=== PATIENT | female | born 1975 | race African-American/Black ===

== ENCOUNTER 2022-09-02 07:57 | Outpatient (REF) | payer BC, SELFPAY | END 2022-09-02 07:58 | disposition home or self-care (01) | LOC: HO.SH 07:57 | PROVIDERS: Visit Provider Physician Assistant | DX: Z01.118 Encounter for examination of ears and hearing with other abnormal findings (principal); H90.11 Conductive hearing loss, unilateral, right ear, with unrestricted hearing on the contralateral side; H69.91 Unspecified Eustachian tube disorder, right ear | CPT/HCPCS: 92557; 92567; 92588 ==

== ENCOUNTER 2024-06-26 10:51 | Emergency (ER) | payer BC, SELFPAY ==
--- NOTE | ~2024-06-26 | XR_ITS ---
EXAMINATION: XR CHEST 1 VIEW HISTORY: Lightheadedness COMPARISON: There are no prior studies for comparison. FINDINGS: A single PA view of the chest is submitted. The lungs are expanded and clear. There is no pleural effusion, pneumothorax, or pulmonary vascular congestion. The heart is normal in size. The bones are intact. XR/XR chest 1V IMPRESSION: Clear lungs. Electronically signed by: Alberto Owens MD 06/26/2024 12:09 PM DICK LORENZ
[2024-06-26 11:24] VITALS: BP 136/88; PULSE 76; RESP 20; TEMP 36.9; O2SAT 99; BMI 39.8
--- NOTE | 2024-06-26 11:25 | ED_ITS ---
HPI - Dizziness General Chief Complaint: Dizziness Stated Complaint: Dizzy Headache Nausea Time Seen by Provider: 06/26/24 21:03 History of Present Illness ED Provider: Naveen POSEY Narrative: The patient comes to the emergency room having felt mildly dizzy for 2 days but then more dizzy today. She describes it dizziness as a bit like lightheadedness. She also has a headache today. She feels she has had some blurry vision with her headache today. The patient says the feelings of dizziness or lightheadedness have been coming and going. She has had no syncope. No fever, sweats, chills. Related Data Previous Rx's ?Medication ?Instructions ?Recorded meclizine 25 mg tablet 25 mg PO TID PRN dizziness #14 tabs 06/26/24 Allergies Allergy/AdvReac Type Severity Reaction Status Date / Time No Known Allergies Allergy Verified 06/26/24 11:27 [No Known Allergies*] Review of Systems 2 Review of Systems: Yes all other systems are reviewed and are negative [facility] Social History Social History Advance Directives: No Advance Directives Information Provided: Yes Do you have a plan to hurt others: No Plan Physical Exam 2 Vital Signs: Vital Signs: Last Vital Signs Temp 97.4 F 06/26/24 23:20 Pulse 75 06/26/24 23:20 Resp 18 06/26/24 23:20 BP 123/64 06/26/24 23:20 Pulse Ox 100 06/26/24 23:20 O2 Del Method Room Air 06/26/24 23:20 BMI result Body Mass Index 39.8 Const: Other: The patient is awake and alert, pleasant cooperative. She looks well. She does not seem toxic. HEENT: Other: The face is symmetrical. Mucous membranes are moist. Posterior pharynx is normal. Eyes: Other: Pupils are round equal, conjunctivae are clear, extraocular movements intact, no nystagmus. Neck: Other: The neck is supple Resp: Effort & Inspection: normal respiratory effort Auscultation: clear to auscultation bilaterally Cardio: Rate: regular rate Rhythm: regular rhythm Heart sounds: S1 normal heart sound present and S2 normal heart sound present GI: Other: abdomen is soft nontender Skin: Other: skin is dry and unremarkable Neuro: Other: the patient is awake and alert with normal mental status. She has a cheerful demeanor and does not look ill or toxic in anyway. She seems to be moving around easily. mental status is entirely normal. Eye movements are normal without nystagmus. Pupils are normal. Face is symmetrical. Speech is normal. Strength is normal in her extremities. There is no pronator drift. Finger-nose is normal. Gait is normal. Extrem: Other: No peripheral edema Course Course Course Narrative: This is a Rapid Medical Exam performed in triage by Jessica Galvez PA-C. Full HPI, ROS and PE to be performed by primary ED provider. 49yo F w/PMHx Salpingectomy last week at [facility] presenting to the ED c/o intermittent lightheadedness since 09:30AM. Admits to some blurry vision. denies CP/SOB, abd pain. PE: ambulating w/steady gait, no focal deficits Plan: EKG, labs, UA, CXR, orthostatics Medications Administered Discontinued Medications Generic Name Dose Route Start Last Admin Trade Name Freq PRN Reason Stop Dose Admin Ketorolac Tromethamine 30 mg 06/26/24 21:36 06/26/24 22:16 Ketorolac Tromethamine 30 Mg/Ml Vial IM 06/26/24 21:37 30 mg ONCE ONE Administration Prochlorperazine Edisylate 10 mg 06/26/24 21:37 06/26/24 22:16 Prochlorperazine Edisylate 10 Mg/2 Ml Vial IM 06/26/24 21:38 10 mg ONCE ONE Administration Medical Decision Making Medical Decision Making [facility] Narrative: the patient is a very pleasant 49-year-old who presented complaining of feeling intermittently dizzy or lightheaded. She also complains of a headache with blurry vision. She had a long wait in the emergency room. She had been in the emergency room for 10 hours prior to my evaluation. I thought she looked quite well. I did not find any neurological abnormalities on her exam or any other abnormality on her exam. Her vital signs are unremarkable. Testing ordered at triage includes an unremarkable EKG, a normal chest x-ray, unremarkable blood testing, urine testing, and viral swab. Patient was given an IM injection of ketorolac and prochlorperazine for her headache. She seemed to feel better. She continued to look well. I thought she was safe for discharge. Lab Data 06/26/24 11:43 06/26/24 11:43 Labs: Lab Results 06/26/24 06/26/24 Range/Units 11:43 20:50 WBC 8.3 (4.8-10.8) X10*3/uL RBC 4.17 L (4.20-5.50) X10*6/uL Hgb 13.1 (12.0-16.0) g/dl Hct 39.1 (37.0-47.0) % MCV 93.8 (80.0-98.0) fL MCH 31.4 (27.0-33.0) pg MCHC 33.5 (31.0-35.0) g/dl RDW 12.3 (11.0-16.0) % Plt Count 311 (160-400) X10*3/uL MPV 9.6 (9.4-12.3) fL Immature Gran % (Auto) 0.2 (0.0-0.4) % Neut % (Auto) 50.3 (45-73) % Lymph % (Auto) 40.2 H (20-40) % [place] % (Auto) 7.8 (2-11) % Eos % (Auto) 1.0 (0-4) % Baso % (Auto) 0.5 (0-2) % Lymph # (Auto) 3.3 (1.2-4.9) X10*3/uL [place] # (Auto) 0.6 (0.1-1.2) X10*3/uL Eos # (Auto) 0.1 (0.0-0.4) X10*3/uL Baso # (Auto) 0.0 (0.0-0.2) X10*3/uL Abs Immat Gran (auto) 0.02 (0.00-0.03) X10*3/uL Absolute Neuts (auto) 4.2 (2.0-8.3) x10*3/uL Absolute Nucleated RBC 0.000 (0.0-0.012) X10*3/uL Nucleated RBC % (auto) 0.0 (0.0-0.2) /100WBC PT 11.9 (10.9-12.4) SEC INR 1.0 (0.9-1.1) Sodium 136 (135-145) mmol/L Potassium 3.9 (3.3-5.1) mmol/L Chloride 105 (96-108) mmol/L Carbon Dioxide 24 (22-29) mmol/L Anion Gap 11 L (12-20) BUN 17 H (9-16) mg/dL Creatinine 0.81 (0.5-1.4) mg/dL Estim Creat Clear Calc 100.4 Estimated GFR > 60 Random Glucose 85 (60-115) mg/dL Calcium 9.5 (8.4-10.2) mg/dL Magnesium 1.9 (1.6-2.6) mg/dL Total Bilirubin 0.8 (0.0-1.0) mg/dL Direct Bilirubin 0.1 (0.0-0.5) mg/dL AST 31 (5-31) U/L ALT 26 (0-31) U/L Alkaline Phosphatase 49 (39-117) U/L Troponin I High Sens < 2.7 (<3.5-17.0) ng/L Total Protein 8.4 H (6.5-8.0) g/dL Albumin 4.4 (3.5-5.0) g/dL Lipase 16 (8-78) U/L Urine Color Yellow Urine Appearance Clear Urine pH 6.5 (5.0-9.0) Ur Specific [place] >= 1.030 H (1.005-1.025) Urine Protein Trace (Neg-Trace) mg/dL Urine Glucose (UA) Negative (Negative) mg/dL Urine Ketones Trace (Negative) mg/dL Urine Blood Negative (Negative) Urine Nitrite Negative (Negative) Ur Leukocyte Esterase Negative (Negative) Influenza Type A (PCR) NEGATIVE (Negative) Influenza Type B (PCR) NEGATIVE (Negative) RSV RNA Qual (PCR) NEGATIVE (Negative) SARS-CoV-2 RNA (RT-PCR) NEGATIVE (Negative) Discharge Plan Discharge Clinical Impression: Headache, Dizziness Patient Disposition: Home, Self-Care Additional Instructions: Please rest and take it easy and see if this medication helps. I have sent a prescription for a medication called meclizine which may help if you have any ongoing dizziness. Please contact your regular doctor in the morning for prompt follow up appointment to discuss these symptoms further. Return to the emergency room if you feel significantly worse. Prescriptions: New meclizine 25 mg tablet 25 mg PO TID PRN (Reason: dizziness) Qty: 14 0RF Referrals: Brittany Tabares MD [Primary Care Provider] - Interventions: ED Discharge Assessment Last Done: 06/26/24 23:20 Discharge Date/Time: 06/26/24 23:22 Print Language: Rwandan
--- NOTE | 2024-06-26 11:29 | ECG_ITS ---
Test Reason : dizzy Blood Pressure : */* mmHG Vent. Rate : 71 BPM Atrial Rate : 71 BPM P-R Int : 148 ms QRS Dur : 90 ms QT Int : 404 ms P-R-T Axes : 7 -15 -11 degrees QTcB Int : 439 ms Normal sinus rhythm Minimal voltage criteria for LVH, may be normal variant ( R in aVL ) Borderline ECG When compared with ECG of 30-Mar-2017 00:06, No significant change was found Referred By: Jessica Galvez Electronically Signed By: YENNI AJ MD
[2024-06-26 11:50] LABS: MANUAL DIFF FLAG NO
[2024-06-26 12:01] LABS: Basophils Percent Auto 0.5 % (0-2); Eosinophils Absolute Auto 0.1 X10*3/uL (0.0-0.4); Hematocrit 39.1 % (37.0-47.0); Hemoglobin 13.1 g/dl (12.0-16.0); Imm Gran Abs Auto 0.02 X10*3/uL (0.00-0.03); Imm Gran Pct Auto 0.2 % (0.0-0.4); Lymphocytes Absolute Auto 3.3 X10*3/uL (1.2-4.9); Lymphocytes Percent Auto 40.2 % (20-40); Mean Corpuscular HGB Conc 33.5 g/dl (31.0-35.0); Mean Corpuscular Hemoglobin 31.4 pg (27.0-33.0); Mean Corpuscular Volume 93.8 fL (80.0-98.0); Mean Platelet Volume 9.6 fL (9.4-12.3); Monocytes Absolute Auto 0.6 X10*3/uL (0.1-1.2); Monocytes Percent Auto 7.8 % (2-11); Neutrophils Absolute Auto 4.2 x10*3/uL (2.0-8.3); Neutrophils Percent Auto 50.3 % (45-73); Platelet Count 311 X10*3/uL (160-400); Prothrombin Time 11.9 SEC (10.9-12.4); Red Blood Count 4.17 X10*6/uL (4.20-5.50); Red Cell Distribution Width 12.3 % (11.0-16.0); White Blood Count 8.3 X10*3/uL (4.8-10.8)
[2024-06-26 12:06] LABS: Alanine Aminotransferase 26 U/L (0-31); Albumin Level 4.4 g/dL (3.5-5.0); Alkaline Phosphatase 49 U/L (39-117); Anion Gap 11 (12-20); Aspartate Amino Transferase 31 U/L (5-31); Bilirubin Direct 0.1 mg/dL (0.0-0.5); Bilirubin Total 0.8 mg/dL (0.0-1.0); Blood Urea Nitrogen 17 mg/dL (9-16); Calcium 9.5 mg/dL (8.4-10.2); Carbon Dioxide 24 mmol/L (22-29); Chloride 105 mmol/L (96-108); Creatinine Clr Calc Pharmacy 100.4; Estimated Glomerular Filt Rate > 60; Glucose Random 85 mg/dL (60-115); Lipase 16 U/L (8-78); Magnesium 1.9 mg/dL (1.6-2.6); Potassium 3.9 mmol/L (3.3-5.1); Sodium 136 mmol/L (135-145); Total Protein 8.4 g/dL (6.5-8.0)
[2024-06-26 12:16] LABS: Troponin-I High Sensitivity < 2.7 ng/L (<3.5-17.0)
[2024-06-26 12:37] LABS: Influenza A PCR NEGATIVE (Negative); Influenza B PCR NEGATIVE (Negative); Resp Syncy Virus RNA Qual PCR NEGATIVE (Negative); SARS COV2 PCR INHOUSE NEGATIVE (Negative)
--- OUTSIDE RECORDS SUMMARY | 2024-06-26 13:37 | XMS_ITS | Continuity of Care Document ---
Author Organization [facility] Address [address] [place] [phone] Phone Care Team Providers Care Customer Success Advocate Name Role Phone Provider, [facility] Unavailable Unavailable Advance Directives Directive Yes / No Effective Date File Name No Information Encounters Encounter Description Practice Location Reason(s) For Visit Diagnoses Date Provider Providers Copied on Encounter [facility], [address] [place] [address], [id number], tel:[phone] No Information Provider [facility]. . [facility], [address] [place] [address], [id number], [place] tel:[phone] [facility] Location OBESITY (MORBID)HYPOTH YROIDISMDEPRES SIONSCREENING FOR DIABETES MELLITUJOINT PAIN - PAIN IN JOINT INV Provider [employer]. . Family History Family Member Type Diagnosis Age At Onset No Information Payers Payer name Insurance type Covered alliance party ID Authoriza tion(s) No Information Social History Type Description Quantity Date Captured Comments Sex Female Smoking Status No Information Chief Complaint And Reason For Visit No Information History Of Present Illness Encounter Date Complaint History Of Prese nt Illness No Information Instructions Date Instruction Additional Infor mation No Information Assessments Type Assessment Date No Information
--- OUTSIDE RECORDS SUMMARY | 2024-06-26 13:37 | XMS_ITS | Clinical Summary ---
Author Organization [address] Address [address] [place] [phone] Phone Care Team Providers Care Freight Car Loader Name Role Phone Brittany Tabares MD Primary Care Provider [phone] Allergies No known active allergies Medications cyclobenzaprine (FLEXERIL) 10 mg tablet Take 1 tablet (10 mg total) by mouth 3 (three) times a day if needed (spasms/pain). 3 Active levonorgestreL (MIRENA) 21 mcg/24hr (up to 8 yrs) 52 mg IUD 1 Device (1 each total) by intrauterine route 1 (one) time. 4 12/27/19 29 Active naproxen (NAPROSYN) 500 mg tablet Take 1 tablet (500 mg total) by mouth 2 (two) times a day with meals. as needed 3 Active Active Problems Problem Noted Date Diagnosed Date Arthritis of carpometacarpal (CMC) joint of left thumb 02/13/2023 Left carpal tunnel syndrome 02/13/2023 Vitamin B12 deficiency 03/22/2021 Vitamin D deficiency 03/22/2021 Obesity (BMI 30-39.9) 04/01/2017 Condyloma acuminatum 06/06/2016 Overview (04/15/2024): Condyloma acuminatum 05/31 perineum Degeneration, intervertebral disc, lumbosacral 1 05/29/2009 Radiculitis, lumbosacral 03/29/2010 Lumbago 10/15/2007 Overview (04/15/2024): Lumbar x-ray completed 02/2010: Multilevel chronic discogenic disease, most severe at the L4-5 level. Immunizations Name Administration Dates Next Due Influenza Quadravalent, MDCK , 0.5ml, preservative free (Flucelvax) 6mo and older 01/24/2022,03/19/2021 Influenza trivalent, 0.5mL, preservative free (Fluarix; FluLaval; Fluzone) ages 6mo and older (Afluria) 3 years and older 02/23/2010 Td Tetanus diptheria (Tdvax) 7yo and older 03/19 Surgical History Surgery Date Site/Laterality Comments OTHER SURGICAL HISTORY 04/15/14 PROCEDURE: HISTORY OTHER; COMMENT: lap sleeve gastrectomy (bariatric surgery) - dr. Elam, [facility] CHOLECYSTECTOMY 2018 PROCEDURE: LAPAROSCOPY, CHOLECYSTECTOMY Medical History Medical History Date Comments Generalized osteoarthrosis, unspecified site DX:Generalized osteoarthrosi s, unspecified site; COMMENT: knee Back pain DX:Back pain IUD (intrauterine device) in place 2013 DX:IUD (intrauterine device) in place; COMMENT: Mirena Family History Medical History Relation Name Comments Hypertension Father Hypertension Mother Diabetes Mother's side aunt Breast cancer Other mat cousin 40 Hypertension Sister Colon cancer Neg Hx Ovarian cancer Neg Hx Uterine cancer Neg Hx Relation Name Status Comments Father Mother Mother's side Other mat cousin 40 Alive Sister Social History Tobacco Use Types Packs/Day Years Used Date Smoking Tobacco: Former Cigarettes 0.3 10.8 0 05/15/1987 - 03/13/1998 Smokeless Tobacco: Never Alcohol Use Standard Drinks/Week Comments Yes 0 (1 standard drink = 0.6 oz pur e alcohol) Comments Unknown Sex and Gender Information Value Date Recorded Sex Assigned at Not on file Legal Sex Female 4:57 AM EST Gender Identity Not on file Sexual Orientation Not on file Obstetrics History Last Filed Vital Signs Vital Sign Reading Time Taken Comments Blood Pressure 117/61 01/22/2024 9:26 AM EDT Pulse 78 01/22/2024 9:26 AM EDT Temperature - - Respiratory Rate - - Oxygen Saturation - - Inhaled Oxygen Concentration - - Weight 105 kg (232 lb) 01/22/2024 9:26 AM EDT Height 162.6 cm (5' 4 ) 08/28/2023 8:00 AM EDT Body Mass Index 39.82 08/28/2023 8:00 AM EDT Plan of Treatment Upcoming Encounters Date Type Department Care Team (Late st Contact Info) Description 08/23/2024 9:00 AM EDT Office Visit Adult Medicine [address] [phone] Brittany Tabares MD [address] [place], [place] 03/19/2025 7:30 AM EST Appointment Radiology Department - [address] [phone] Health Maintenance Due Date Last Done Comments Hepatitis B Vaccines (1 of 3 - 19+ 3-dose series) 1995 Cervical Cancer Screening: Pap Smear 05/29/2020 05/29/2017, 05/29/2017 Colorectal Cancer Screening: Colonoscopy 04/24/2022 Depression Screening 04/24/2022 HIV Screening 04/24/2022 Hepatitis C Screening 04/24/2022 Social Influencers of Health Screening 04/24/2022 COVID-19 Vaccine ( season) 2024 08/16/2020, 07/19/2020 Influenza Vaccine (#1) 2024 2, 03/19/2021, 02/23/2010 Breast Cancer Screening 02/26/2026 02/27/20 24, 02/27/2024, 02/21/2023, Additional history exists Cholesterol Screening (Lipid Panel) 03/20/2026 03/20/2021 DTaP,Tdap,and Td Vaccines (3 - Td or Tdap) 03/19/2031 03/19/2021, 03/12/2008 HIB Vaccines Aged Out No longer eligi ble based on patient's age to complete this topic HPV Vaccines Aged Out No longer eligi ble based on patient's age to complete this topic Hepatitis A Vaccines Aged Out No long er eligible based on patient's age to complete this topic IPV Vaccines Aged Out No longer eligi ble based on patient's age to complete this topic MMR Vaccines Aged Out No longer eligi ble based on patient's age to complete this topic Meningococcal ACWY Vaccine Aged Out N o longer eligible based on patient's age to complete this topic Meningococcal B Vacine Aged Out No lo nger eligible based on patient's age to complete this topic Pneumococcal Vaccine: Pediatrics (0 to 5 Years) and At-Risk Patients (6 to 64 Years) Aged Out No longer eligible based on patient's age to complete this topic RSV Immunization Patients Under 20 months Aged Out No longer eligible based on patient's age to complete this topic Varicella Vaccines Aged Out No longer eligible based on patient's age to complete this topic Procedures Procedure Name Priority Date/Time Associated Diagnosis Comments SCREENING MAMMOGRAPHY BI 2-VIEW BREAST INC CAD Routine 02/27/2024 7:47 AM EDT Encounter for screening mammogram for malignant neoplasm of breast LIPID PANEL Routine 03/20/2021 HM HPV Routine 05/29/2017 from Last 3 Months or Most Recently Relevant to Health Maintenance Results * SCREENING MAMMOGRAPHY BI 2-VIEW BREAST INC CAD (02/27/2024 7:47 AM EDT) Anatomical Region Laterality Modality Radiographic Angelina ging 02/21/2023 8:00 AM EDT Narrative 02/27/2024 3:29 PM EDT This is a summary report. The complete report is available in the patient's medical record. If you cannot access the medical record, please contact the sending organization for a detailed fax or copy. Exam: Screening mammogram Findings: Digital bilateral full-field screening mammography is performed with tomosynthesis and interpreted with the aid of computer-aided detection. ??Comparison is made with 02/21/2023 and as far back as 02/11/2021. Breast parenchyma is heterogeneously dense, which may obscure small masses. ??No new suspicious mass, architectural distortion, or suspicious calcifications. Impression: No mammographic evidence of malignancy. BI-RADS 1 - negative [facility] [address] [id number] Procedure Note Janna Linder MD - 03/12/2024 This is a summary report. The complete report is available in thepatient's medical record. If you cannot access the medical record, pleasecontact the sending organization for a detailed fax or copy. Exam: Screening mammogram Findings: Digital bilateral full-field screening mammography is performedwith tomosynthesis and interpreted with the aid of computer-aideddetection. Comparison is made with 02/21/2023 and as far back as02/11/2021. Breast parenchyma is heterogeneously dense, which may obscure smallmasses. No new suspicious mass, architectural distortion, or suspiciouscalcifications. Impression: No mammographic evidence of malignancy. BI-RADS 1 - negative [address] [id number] Brittany Tabares MD IMG XR PROCEDURES Final Result * (ABNORMAL) Lipid panel (03/20/2021) LDL/HDL Ratio 3 0 - 4 Triglycerides 124 0 - 150 mg/dL Cholesterol 180 0 - 200 mg/dL HDL 55 >=40 mg/dL LDL Cholesterol 101(A) 0 - 100 mg/dL Blood Venous blood specimen / Unknown Historical Provider LAB BLOOD ORDERABLES Linda l Result * Cervical Cancer Screening: HPV (05/29/2017) Pathologist [facility] Cervical Cancer Screening: HPV Negative, abstracted Historical Provider HEALTH MAINTENANCE Final Result from Last 3 Months or Most Recently Relevant to Health Maintenance Care Teams Freight Car Loader Relationship Specialty Start Date End Date Brittany Tabares MD [address] [place] [phone] PCP - General Internal Medicine 10/08/20
[2024-06-26 20:34] VITALS: BP 123/64; PULSE 75; RESP 18; TEMP 36.3; O2SAT 100
[2024-06-26 20:39] VITALS: BP 123/59; PULSE 77
[2024-06-26 20:40] VITALS: BP 144/79; BP 146/85; PULSE 77; PULSE 78
--- NOTE | 2024-06-26 20:42 | MHC.EDTECH ---
rechecked patients vitals. completed orthostatic vital signs, gave patient a urine cup. waiting for a sample. patient stating that she is dizzy.
[2024-06-26 20:57] LABS: Appearance Urine Clear; Color Urine Yellow; Glucose Urine UA Negative (Negative); Leukocyte Esterase Urine Negative (Negative); Nitrite Urine Negative (Negative); PH 6.5 (5.0-9.0); Specific Gravity - Urine >= 1.030 (1.005-1.025); Urine Blood Negative (Negative); Urine Ketones Trace mg/dL (Negative); Urine Protein Trace mg/dL (Neg-Trace)
[2024-06-26] MEDS: Prochlorperazine Edisylate 10 MG/2 ML VIAL IM (22:16)
[2024-06-26] MEDS: Ketorolac Tromethamine 30 MG/ML VIAL IM (22:16)
[2024-06-26 23:20] VITALS: BP 123/64; PULSE 75; RESP 18; TEMP 36.3; O2SAT 100
== END 2024-06-26 23:22 | disposition home or self-care (01) ==
PROVIDERS: Physician Assistant; Emergency Provider Emergency Medicine; PCP Internal Medicine
DX: R42 Dizziness and giddiness (principal); R11.2 Nausea with vomiting, unspecified; R51.9 Headache, unspecified; H53.8 Other visual disturbances; R10.2 Pelvic and perineal pain; R94.31 Abnormal electrocardiogram [ECG] [EKG]; Z03.818 Encounter for observation for suspected exposure to other biological agents ruled out; Z79.899 Other long term (current) drug therapy
CPT/HCPCS: 0241U; 36415; 71045; 80048; 80076; 81003; 83690; 83735; 84484; 85025; 85610; 93005; 96372; 99284; J0737; J1885

== ENCOUNTER → 2024-06-26 11:29 | Outpatient (BNV) | payer BC, SELFPAY | PROVIDERS: PCP Internal Medicine; Visit Provider Internal Medicine Cardiovascular Disease | DX: R42 Dizziness and giddiness (principal) | CPT/HCPCS: 93010 ==

== ENCOUNTER → 2024-06-26 11:29 | Outpatient (BNV) | payer BC, SELFPAY | PROVIDERS: PCP Internal Medicine; Visit Provider Radiology Diagnostic Radiology | DX: R42 Dizziness and giddiness (principal) | CPT/HCPCS: 71045 ==